=== PATIENT | male | born 1990 | race African-American/Black ===

== ENCOUNTER 2018-03-21 15:47 | Emergency (ER) | payer MEDICAID ==
[~2018-03-21] VITALS: Ht 172.7 cm; Wt 83.9 kg
[2018-03-21 15:52] VITALS: BP 126/82
[2018-03-21] MEDS ORDERED: BACITRACIN TOP OINT 1 UD PKG TOP ONE (17:30)
== END 2018-03-21 17:55 | disposition home or self-care (01) ==
LOC: ER 15:47 → EDBD 15:47 → ER 17:55
DX: S62.302A Unspecified fracture of third metacarpal bone, right hand, initial encounter for closed fracture (principal); S01.81XA Laceration without foreign body of other part of head, initial encounter; Y04.0XXA Assault by unarmed brawl or fight, initial encounter; Y93.89 Activity, other specified; Y92.89 Other specified places as the place of occurrence of the external cause; Y99.8 Other external cause status
CPT/HCPCS: 70450; 73130